=== PATIENT | male | born 1935 | race Caucasian/White ===

== ENCOUNTER → 2020-06-24 | Day surgery (SDC) | payer MEDICARE ==
[2020-06-22 10:43] LABS: BASOPHILS % 0.6 % (0.0-1.0); EOSINOPHILS # (AUTO) 0.1 (0.0-0.4); EOSINOPHILS % 1.6 % (0.0-6.0); HEMATOCRIT 37.1 % (38.2-49.6); HEMOGLOBIN 12.2 g/dL (14.0-18.0); LYMPHOCYTES % 15.6 % (18.0-39.1); MEAN CORPUSCULAR HGB CONC 32.9 g/dL (31-35); MEAN CORPUSCULAR VOLUME 91.2 fL (81-99); MONOCYTES # (AUTO) 0.5 (0.2-0.8); MONOCYTES % 7.4 % (4.4-11.3); NEUTROPHILS # (AUTO) 4.7 (2.1-6.9); NEUTROPHILS % 74.5 % (38.7-80.0); PLATELET COUNT 197 x10e3/uL (140-360); RED BLOOD COUNT 4.07 x10e6/uL (4.3-5.7); RED CELL DISTRIBUTION WIDTH 13.5 % (11.7-14.4)
[2020-06-22 11:00] LABS: ANION GAP 13.8 mmol/L (8-16); CALCIUM 10.1 mg/dL (8.4-10.2); CREATININE, SERUM 1.27 mg/dL (0.72-1.25); POTASSIUM 3.8 mmol/L (3.5-5.1)
[~2020-06-24] MED LIST: BUPIVACAINE 0.5%/EPI 30 ML SDV INJ ONE; DEXAMETHASONE SOD PHOS INJ 4 MG/ML VIAL ONE; FENTANYL CITRATE/PF 100MCG/2 ML INJ ONE; GLYCOPYRROLATE INJ 0.2 MG/ML VIAL ONE; HYDROCODONE/APAP 7.5MG-325MG 1 EA TAB ONE; LIDOCAINE HCL 2% LOCAL INJ 5 ML SDV VIAL INJ ONE; NEOSTIGMINE 1 MG/ML 10ML VIAL ONE; ONDANSETRON HCL INJ 2MG/ML 2ML 2 MG/ML VIAL ONE; PHENYLEPHRINE HCL 1% 10 MG/ML VIAL ONE; PROPOFOL IV EMULSION 10 MG/ML 20 ML VIAL ONE; ROCURONIUM BROMIDE 10 MG/ML 5ML VIAL IV ONE; SEVOFLURANE INHAL SOLN 250 ML PEN BTL ONE; TRILIPIX135 MG PO; Z.0.BISOPROLOL FUMAR PO; Z.0.LIPITOR40 MG PO; Z.0.PLAVIX75 MG PO; Z.1.DIOVAN HCT 1601 PO; Z.6.FISH OIL 1,0001 PO
[2020-06-24 11:15] VITALS: BP 138/61
== END | disposition home or self-care (01) ==
LOC: OR 06:22
PROVIDERS: ATTEND Surgery
DX: K42.0 Umbilical hernia with obstruction, without gangrene (principal); I45.10 Unspecified right bundle-branch block; I25.10 Atherosclerotic heart disease of native coronary artery without angina pectoris; I10 Essential (primary) hypertension; Z01.810 Encounter for preprocedural cardiovascular examination; Z01.812 Encounter for preprocedural laboratory examination; Z01.818 Encounter for other preprocedural examination; Z20.822 Contact with and (suspected) exposure to COVID-19; Z79.02 Long term (current) use of antithrombotics/antiplatelets
CPT/HCPCS: 36415; 49587; 71046; 80048; 85025; 93005; C1781; J1100; J2001; J2370; J2405; J2704; J2710; J3010; U0002

== ENCOUNTER 2022-07-24 16:02 | Inpatient (IN) | payer MEDICARE ==
[~2022-07-24] VITALS: Ht 185.4 cm; Wt 83.9 kg
[~2022-07-24 16:02] MED LIST changes: -BUPIVACAINE 0.5%/EPI 30 ML SDV INJ ONE; +DEXAMETHASONE SOD PHOS INJ 4 MG/ML SDV ONE; -DEXAMETHASONE SOD PHOS INJ 4 MG/ML VIAL ONE; -FENTANYL CITRATE/PF 100MCG/2 ML INJ ONE; -HYDROCODONE/APAP 7.5MG-325MG 1 EA TAB ONE; +LABETALOL HCL 5 MG/ML 20ML VIAL ONE; -PHENYLEPHRINE HCL 1% 10 MG/ML VIAL ONE; +POVIDONE IODINE 0.05% 0.05 % ML PO ONE; -SEVOFLURANE INHAL SOLN 250 ML PEN BTL ONE; +SUCCINYLCHOLINE CHLORIDE 20 MG/ML 10ML VIAL ONE
[2022-07-24 17:47] LABS: ALBUMIN 2.1 g/dL (3.5-5.0); ALBUMIN/GLOBULIN RATIO 0.6 (0.8-2.0); ANION GAP 12.8 mmol/L (8-16); CREATININE, SERUM 0.92 mg/dL (0.72-1.25); POTASSIUM 3.8 mmol/L (3.5-5.1)
[2022-07-24 17:48] LABS: BASOPHILS % 0.4 % (0.0-1.0); EOSINOPHILS % 0.2 % (0.0-6.0); HEMATOCRIT 25.6 % (38.2-49.6); HEMOGLOBIN 8.2 g/dL (14.0-18.0); LYMPHOCYTES # (AUTO) 1.7 (1.0-3.2); LYMPHOCYTES % 19.2 % (18.0-39.1); MEAN CORPUSCULAR HEMOGLOBIN 28.1 pg (28-32); MEAN CORPUSCULAR VOLUME 87.7 fL (81-99); MONOCYTES # (AUTO) 0.8 (0.2-0.8); MONOCYTES % 8.9 % (4.4-11.3); NEUTROPHILS # (AUTO) 6.3 (2.1-6.9); NEUTROPHILS % 70.9 % (38.7-80.0); PLATELET COUNT 367 x10e3/uL (140-360); RED BLOOD COUNT 2.92 x10e6/uL (4.3-5.7); RED CELL DISTRIBUTION WIDTH 14.6 % (11.7-14.4)
[2022-07-24 17:54] LABS: CREATINE KINASE MB 1.5 ng/mL (0-5.0)
[2022-07-24 17:56] LABS: AMORPHOUS SEDIMENT,URINE FEW (FEW); BACTERIA,URINE FEW /HPF; CLARITY,URINE HAZY (CLEAR); COLOR,URINE YELLOW (YELLOW); EPITHELIAL CELLS,URINE FEW /LPF; KETONES,URINE NEGATIVE (NEGATIVE); LEUKOCYTE ESTERASE ,URINE TRACE (NEGATIVE); NITRITE,URINE NEGATIVE (NEGATIVE); PROTEIN,URINE DIPSTICK NEGATIVE (NEGATIVE); RBC,URINE 0-5 /HPF (0-5); URINE UROBILINOGEN 1 mg/dL (0.2 - 1)
[2022-07-24] MEDS ORDERED: IOPAMIDOL 370 MG/ML 100 ML INFUS..BTL INJ ONE (19:00)
[2022-07-24] MEDS ORDERED: Morphine 4mg INJECTION 4 MG/ML INJ IV PRN (20:30)
[2022-07-24] MEDS ORDERED: ONDANSETRON HCL INJ 2MG/ML 2ML 2 MG/ML VIAL IV PRN (20:30)
[2022-07-24] MEDS: SODIUM CHLORIDE 0.9% 1000ML 1,000 ML IV SCH (21:14)
[2022-07-24 22:42] LABS: FERRITIN 777.7 ng/mL (21.81-274.66)
[2022-07-25] MEDS: SODIUM CHLORIDE 0.9% 1000ML 1,000 ML IV SCH ×4 (03:18→23:52)
[2022-07-25 03:30] LABS: CREATINE KINASE MB 1.6 ng/mL (0-5.0)
[2022-07-25 04:55] LABS: BASOPHILS # (AUTO) 0.1 (0.0-0.1); BASOPHILS % 0.8 % (0.0-1.0); HEMATOCRIT 24.4 % (38.2-49.6); HEMOGLOBIN 7.8 g/dL (14.0-18.0); LYMPHOCYTES # (AUTO) 1.2 (1.0-3.2); LYMPHOCYTES % 15.7 % (18.0-39.1); MEAN CORPUSCULAR HEMOGLOBIN 28.1 pg (28-32); MEAN CORPUSCULAR VOLUME 87.8 fL (81-99); MONOCYTES # (AUTO) 0.7 (0.2-0.8); NEUTROPHILS # (AUTO) 5.9 (2.1-6.9); NEUTROPHILS % 73.9 % (38.7-80.0); PLATELET COUNT 329 x10e3/uL (140-360); RED BLOOD COUNT 2.78 x10e6/uL (4.3-5.7); RED CELL DISTRIBUTION WIDTH 14.8 % (11.7-14.4)
[2022-07-25 05:22] LABS: ALBUMIN 1.9 g/dL (3.5-5.0); ALBUMIN/GLOBULIN RATIO 0.7 (0.8-2.0); ANION GAP 12.6 mmol/L (8-16); CALCIUM 9.3 mg/dL (8.4-10.2); CREATININE, SERUM 0.84 mg/dL (0.72-1.25); POTASSIUM 3.6 mmol/L (3.5-5.1)
[2022-07-25 14:47] LABS: CREATINE KINASE MB 1.5 ng/mL (0-5.0)
[2022-07-25] MEDS ORDERED: ELIQUIS5 MG PO (23:39)
[2022-07-25] MEDS ORDERED: TRICOR145 MG PO (23:39)
[2022-07-25] MEDS ORDERED: CARVEDILOL3.125 MG PO (23:39)
[2022-07-25] MEDS ORDERED: NORVASC10 MG PO (23:39)
[2022-07-25] MEDS ORDERED: ATROVENT HFA12.9 GM INH (23:39)
[2022-07-25] MEDS ORDERED: VITAMIN B-121000 MC2 PO (23:39)
[2022-07-25] MEDS ORDERED: PREDNISONE20 MG PO (23:39)
[2022-07-25] MEDS ORDERED: BROVANA15 MCG/2 M NEB (23:39)
[2022-07-25] MEDS ORDERED: PROTONIX20 MG PO (23:39)
[2022-07-25] MEDS ORDERED: FUROSEMIDE40 MG PO (23:39)
[2022-07-25] MEDS ORDERED: BUDESONIDE0.5 MG/2 M NEB (23:39)
[2022-07-25] MEDS ORDERED: OMEGA-31000 MG PO (23:39)
[2022-07-26] VITALS (7 sets, daily range): BP systolic 113–145; BP diastolic 61–85
[2022-07-26] MEDS: SODIUM CHLORIDE 0.9% 1000ML 1,000 ML IV SCH ×3 (04:51→20:27)
[2022-07-26 05:41] LABS: BASOPHILS # (AUTO) 0.1 (0.0-0.1); BASOPHILS % 0.9 % (0.0-1.0); HEMATOCRIT 23.4 % (38.2-49.6); HEMOGLOBIN 7.8 g/dL (14.0-18.0); LYMPHOCYTES # (AUTO) 1.3 (1.0-3.2); LYMPHOCYTES % 23.2 % (18.0-39.1); MEAN CORPUSCULAR HEMOGLOBIN 29.9 pg (28-32); MEAN CORPUSCULAR HGB CONC 33.3 g/dL (31-35); MEAN CORPUSCULAR VOLUME 89.7 fL (81-99); MONOCYTES # (AUTO) 0.5 (0.2-0.8); MONOCYTES % 8.9 % (4.4-11.3); NEUTROPHILS # (AUTO) 3.8 (2.1-6.9); NEUTROPHILS % 66.5 % (38.7-80.0); PLATELET COUNT 306 x10e3/uL (140-360); RED BLOOD COUNT 2.61 x10e6/uL (4.3-5.7); RED CELL DISTRIBUTION WIDTH 15.6 % (11.7-14.4)
[2022-07-26 06:05] LABS: ALBUMIN 2.1 g/dL (3.5-5.0); ALBUMIN/GLOBULIN RATIO 0.7 (0.8-2.0); ANION GAP 11.5 mmol/L (8-16); CALCIUM 9.4 mg/dL (8.4-10.2); CREATININE, SERUM 0.89 mg/dL (0.72-1.25); POTASSIUM 3.5 mmol/L (3.5-5.1)
[2022-07-26] MEDS: IRON SUCROSE 100 MG in SODIUM CHLORIDE 0.9% 100 ML IV SCH (09:24)
[2022-07-26] MEDS: OMEGA 3 POLYUNSAT FATTY ACIDS 1000 MG SOFTGEL PO SCH ×2 (09:24→18:03)
[2022-07-26] MEDS: VALSARTAN 160 MG TAB PO SCH (09:25)
[2022-07-26] MEDS: HYDROCHLOROTHIAZIDE 25 MG TAB PO SCH (09:25)
[2022-07-26] MEDS: BISOPROLOL FUMARATE 10 MG TAB PO SCH (09:26)
[2022-07-26] MEDS: ATORVASTATIN 40 MG TAB PO SCH (09:28)
[2022-07-26] MEDS: FENOFIBRIC ACID 135 MG PO SCH (11:19)
[2022-07-26] MEDS ORDERED: GADOBENATE DIMEGLUMINE 1 ML IV ONE (12:36)
[2022-07-27] VITALS (8 sets, daily range): BP systolic 111–132; BP diastolic 56–90
[2022-07-27] MEDS: SODIUM CHLORIDE 0.9% 1000ML 1,000 ML IV SCH ×4 (02:54→20:21)
[2022-07-27 07:22] LABS: BASOPHILS # (AUTO) 0.1 (0.0-0.1); BASOPHILS % 0.8 % (0.0-1.0); EOSINOPHILS % 0.3 % (0.0-6.0); HEMATOCRIT 23.4 % (38.2-49.6); HEMOGLOBIN 7.4 g/dL (14.0-18.0); LYMPHOCYTES # (AUTO) 1.4 (1.0-3.2); LYMPHOCYTES % 21.9 % (18.0-39.1); MEAN CORPUSCULAR HGB CONC 31.6 g/dL (31-35); MEAN CORPUSCULAR VOLUME 88.6 fL (81-99); MONOCYTES # (AUTO) 0.6 (0.2-0.8); NEUTROPHILS # (AUTO) 4.2 (2.1-6.9); NEUTROPHILS % 67.5 % (38.7-80.0); PLATELET COUNT 266 x10e3/uL (140-360); RED BLOOD COUNT 2.64 x10e6/uL (4.3-5.7); RED CELL DISTRIBUTION WIDTH 15.5 % (11.7-14.4)
[2022-07-27 07:43] LABS: ALBUMIN 1.9 g/dL (3.5-5.0); ALBUMIN/GLOBULIN RATIO 0.7 (0.8-2.0); ANION GAP 10.3 mmol/L (8-16); CALCIUM 8.7 mg/dL (8.4-10.2); CREATININE, SERUM 0.79 mg/dL (0.72-1.25); POTASSIUM 3.3 mmol/L (3.5-5.1)
[2022-07-27] MEDS: IRON SUCROSE 100 MG in SODIUM CHLORIDE 0.9% 100 ML IV SCH (08:41)
[2022-07-27] MEDS: OMEGA 3 POLYUNSAT FATTY ACIDS 1000 MG SOFTGEL PO SCH ×2 (08:41→18:33)
[2022-07-27] MEDS: BISOPROLOL FUMARATE 10 MG TAB PO SCH (08:42)
[2022-07-27] MEDS: FENOFIBRIC ACID 135 MG PO SCH (08:42)
[2022-07-27] MEDS: VALSARTAN 160 MG TAB PO SCH (08:42)
[2022-07-27] MEDS: HYDROCHLOROTHIAZIDE 25 MG TAB PO SCH (08:42)
[2022-07-27] MEDS: ATORVASTATIN 40 MG TAB PO SCH (08:42)
[2022-07-28] VITALS (9 sets, daily range): BP systolic 120–134; BP diastolic 61–71
[2022-07-28 05:50] LABS: BASOPHILS # (AUTO) 0.1 (0.0-0.1); BASOPHILS % 0.8 % (0.0-1.0); HEMATOCRIT 22.9 % (38.2-49.6); HEMOGLOBIN 7.2 g/dL (14.0-18.0); LYMPHOCYTES # (AUTO) 1.6 (1.0-3.2); LYMPHOCYTES % 23.5 % (18.0-39.1); MEAN CORPUSCULAR HEMOGLOBIN 27.9 pg (28-32); MEAN CORPUSCULAR HGB CONC 31.4 g/dL (31-35); MEAN CORPUSCULAR VOLUME 88.8 fL (81-99); MONOCYTES # (AUTO) 0.5 (0.2-0.8); MONOCYTES % 8.2 % (4.4-11.3); NEUTROPHILS # (AUTO) 4.4 (2.1-6.9); NEUTROPHILS % 66.9 % (38.7-80.0); PLATELET COUNT 277 x10e3/uL (140-360); RED BLOOD COUNT 2.58 x10e6/uL (4.3-5.7); RED CELL DISTRIBUTION WIDTH 15.5 % (11.7-14.4)
[2022-07-28] MEDS: SODIUM CHLORIDE 0.9% 1000ML 1,000 ML IV SCH ×3 (05:59→16:25)
[2022-07-28 06:29] LABS: ALBUMIN 1.9 g/dL (3.5-5.0); ALBUMIN/GLOBULIN RATIO 0.7 (0.8-2.0); CALCIUM 8.8 mg/dL (8.4-10.2); CREATININE, SERUM 0.76 mg/dL (0.72-1.25)
[2022-07-28] MEDS ORDERED: ONDANSETRON HCL 4 MG ORAL DISINTEGRATING TAB PO PRN (08:30)
[2022-07-28] MEDS: FENOFIBRIC ACID 135 MG PO SCH (09:00)
[2022-07-28] MEDS: VALSARTAN 160 MG TAB PO SCH (09:01)
[2022-07-28] MEDS: OMEGA 3 POLYUNSAT FATTY ACIDS 1000 MG SOFTGEL PO SCH ×2 (09:01→16:20)
[2022-07-28] MEDS: IRON SUCROSE 100 MG in SODIUM CHLORIDE 0.9% 100 ML IV SCH (09:01)
[2022-07-28] MEDS: HYDROCHLOROTHIAZIDE 25 MG TAB PO SCH (09:02)
[2022-07-28] MEDS: BISOPROLOL FUMARATE 10 MG TAB PO SCH (09:03)
[2022-07-28] MEDS: ATORVASTATIN 40 MG TAB PO SCH (09:09)
[2022-07-28] MEDS ORDERED: ENOXAPARIN SOD INJ 40 MG/0.4 ML SYR SC ONE (16:27)
[2022-07-28] MEDS: ENOXAPARIN SOD INJ 40 MG/0.4 ML SYR SC SCH (21:23)
[2022-07-29] VITALS (8 sets, daily range): BP systolic 124–146; BP diastolic 60–74
[2022-07-29] MEDS: SODIUM CHLORIDE 0.9% 1000ML 1,000 ML IV SCH ×5 (01:07→21:41)
[2022-07-29 06:57] LABS: BASOPHILS # (AUTO) 0.1 (0.0-0.1); HEMOGLOBIN 7.2 g/dL (14.0-18.0); LYMPHOCYTES # (AUTO) 1.3 (1.0-3.2); LYMPHOCYTES % 21.8 % (18.0-39.1); MEAN CORPUSCULAR HEMOGLOBIN 29.8 pg (28-32); MEAN CORPUSCULAR HGB CONC 32.7 g/dL (31-35); MEAN CORPUSCULAR VOLUME 90.9 fL (81-99); MONOCYTES # (AUTO) 0.5 (0.2-0.8); NEUTROPHILS % 67.7 % (38.7-80.0); PLATELET COUNT 267 x10e3/uL (140-360); RED BLOOD COUNT 2.42 x10e6/uL (4.3-5.7); RED CELL DISTRIBUTION WIDTH 16.4 % (11.7-14.4)
[2022-07-29 07:09] LABS: ANION GAP 11.9 mmol/L (8-16); CALCIUM 8.2 mg/dL (8.4-10.2); CREATININE, SERUM 0.7 mg/dL (0.72-1.25)
[2022-07-29 07:12] LABS: POTASSIUM 2.9 mmol/L (3.5-5.1)
[2022-07-29] MEDS: BISOPROLOL FUMARATE 10 MG TAB PO SCH (09:19)
[2022-07-29] MEDS: ENOXAPARIN SOD INJ 40 MG/0.4 ML SYR SC SCH ×2 (09:19→20:16)
[2022-07-29] MEDS: HYDROCHLOROTHIAZIDE 25 MG TAB PO SCH (09:19)
[2022-07-29] MEDS: OMEGA 3 POLYUNSAT FATTY ACIDS 1000 MG SOFTGEL PO SCH ×2 (09:19→16:54)
[2022-07-29] MEDS: VALSARTAN 160 MG TAB PO SCH (09:19)
[2022-07-29] MEDS: FENOFIBRIC ACID 135 MG PO SCH (09:19)
[2022-07-29] MEDS: IRON SUCROSE 100 MG in SODIUM CHLORIDE 0.9% 100 ML IV SCH (09:20)
[2022-07-29] MEDS ORDERED: FUROSEMIDE INJ 10 MG/ML 2 ML VIAL IV PRN (18:15)
[2022-07-29] MEDS ORDERED: SODIUM CHLORIDE 0.9% 250ML 250 ML IV ONE (18:35)
[2022-07-29] MEDS: POTASSIUM CHLORIDE 20MEQ/100ML 100 ML IV SCH ×2 (20:15→21:38)
[2022-07-29] MEDS: ATORVASTATIN 40 MG TAB PO SCH (21:38)
[2022-07-30] VITALS (8 sets, daily range): BP systolic 129–166; BP diastolic 67–75
[2022-07-30] MEDS: SODIUM CHLORIDE 0.9% 1000ML 1,000 ML IV SCH ×3 (05:46→17:32)
[2022-07-30] MEDS ORDERED: FUROSEMIDE INJ 10 MG/ML 2 ML VIAL IV PRN (06:15)
[2022-07-30 08:26] LABS: BASOPHILS # (AUTO) 0.1 (0.0-0.1); BASOPHILS % 0.9 % (0.0-1.0); EOSINOPHILS % 0.1 % (0.0-6.0); HEMATOCRIT 32.4 % (38.2-49.6); HEMOGLOBIN 10.6 g/dL (14.0-18.0); LYMPHOCYTES # (AUTO) 1.5 (1.0-3.2); LYMPHOCYTES % 19.6 % (18.0-39.1); MEAN CORPUSCULAR HGB CONC 32.7 g/dL (31-35); MEAN CORPUSCULAR VOLUME 88.5 fL (81-99); MONOCYTES # (AUTO) 0.6 (0.2-0.8); MONOCYTES % 7.6 % (4.4-11.3); NEUTROPHILS # (AUTO) 5.5 (2.1-6.9); NEUTROPHILS % 71.4 % (38.7-80.0); PLATELET COUNT 286 x10e3/uL (140-360); RED BLOOD COUNT 3.66 x10e6/uL (4.3-5.7); RED CELL DISTRIBUTION WIDTH 15.9 % (11.7-14.4)
[2022-07-30 08:51] LABS: ALBUMIN 2.1 g/dL (3.5-5.0); ALBUMIN/GLOBULIN RATIO 0.7 (0.8-2.0); ANION GAP 12.2 mmol/L (8-16); CALCIUM 8.8 mg/dL (8.4-10.2); CREATININE, SERUM 0.73 mg/dL (0.72-1.25); POTASSIUM 3.2 mmol/L (3.5-5.1)
[2022-07-30] MEDS: ATORVASTATIN 40 MG TAB PO SCH (09:00)
[2022-07-30] MEDS: OMEGA 3 POLYUNSAT FATTY ACIDS 1000 MG SOFTGEL PO SCH ×2 (09:13→16:52)
[2022-07-30] MEDS: ENOXAPARIN SOD INJ 40 MG/0.4 ML SYR SC SCH ×2 (09:13→21:18)
[2022-07-30] MEDS: BISOPROLOL FUMARATE 10 MG TAB PO SCH (09:14)
[2022-07-30] MEDS: VALSARTAN 160 MG TAB PO SCH (09:16)
[2022-07-30] MEDS: FENOFIBRIC ACID 135 MG PO SCH (09:17)
[2022-07-30] MEDS: IRON SUCROSE 100 MG in SODIUM CHLORIDE 0.9% 100 ML IV SCH (09:17)
[2022-07-30] MEDS: HYDROCHLOROTHIAZIDE 25 MG TAB PO SCH (09:17)
[2022-07-31] VITALS (9 sets, daily range): BP systolic 140–164; BP diastolic 67–88
[2022-07-31] MEDS: SODIUM CHLORIDE 0.9% 1000ML 1,000 ML IV SCH ×4 (03:40→23:49)
[2022-07-31 07:56] LABS: BASOPHILS # (AUTO) 0.1 (0.0-0.1); HEMATOCRIT 26.2 % (38.2-49.6); HEMOGLOBIN 8.9 g/dL (14.0-18.0); LYMPHOCYTES # (AUTO) 1.3 (1.0-3.2); LYMPHOCYTES % 22.1 % (18.0-39.1); MEAN CORPUSCULAR HEMOGLOBIN 30.9 pg (28-32); MONOCYTES # (AUTO) 0.5 (0.2-0.8); NEUTROPHILS % 68.4 % (38.7-80.0); PLATELET COUNT 198 x10e3/uL (140-360); RED BLOOD COUNT 2.88 x10e6/uL (4.3-5.7); RED CELL DISTRIBUTION WIDTH 17.7 % (11.7-14.4)
[2022-07-31 08:32] LABS: ALBUMIN 1.7 g/dL (3.5-5.0); ALBUMIN/GLOBULIN RATIO 0.7 (0.8-2.0); ANION GAP 10.7 mmol/L (8-16); CALCIUM 7.8 mg/dL (8.4-10.2); CREATININE, SERUM 0.66 mg/dL (0.72-1.25)
[2022-07-31 08:55] LABS: POTASSIUM 2.7 mmol/L (3.5-5.1)
[2022-07-31] MEDS: ATORVASTATIN 40 MG TAB PO SCH (10:22)
[2022-07-31] MEDS: BISOPROLOL FUMARATE 10 MG TAB PO SCH (10:23)
[2022-07-31] MEDS: HYDROCHLOROTHIAZIDE 25 MG TAB PO SCH (10:31)
[2022-07-31] MEDS: VALSARTAN 160 MG TAB PO SCH (10:31)
[2022-07-31] MEDS: OMEGA 3 POLYUNSAT FATTY ACIDS 1000 MG SOFTGEL PO SCH ×2 (10:32→17:51)
[2022-07-31] MEDS: ENOXAPARIN SOD INJ 40 MG/0.4 ML SYR SC SCH (10:32)
[2022-07-31] MEDS: FENOFIBRIC ACID 135 MG PO SCH (10:32)
[2022-07-31] MEDS ORDERED: POTASSIUM CHLORIDE 20 MEQ TAB CR PO ONE ×3 (12:45→20:30)
[2022-08-01] VITALS (8 sets, daily range): BP systolic 131–155; BP diastolic 65–69
[2022-08-01] MEDS: BISOPROLOL FUMARATE 10 MG TAB PO SCH (09:00)
[2022-08-01] MEDS: OMEGA 3 POLYUNSAT FATTY ACIDS 1000 MG SOFTGEL PO SCH ×2 (09:00→17:05)
[2022-08-01] MEDS: VALSARTAN 160 MG TAB PO SCH (09:00)
[2022-08-01] MEDS: HYDROCHLOROTHIAZIDE 25 MG TAB PO SCH (09:00)
[2022-08-01] MEDS: ATORVASTATIN 40 MG TAB PO SCH (09:00)
[2022-08-01] MEDS: FENOFIBRIC ACID 135 MG PO SCH (09:00)
[2022-08-01] MEDS ORDERED: FENTANYL CITRATE/PF 100MCG/2 ML INJ ONE (12:16)
[2022-08-01] MEDS ORDERED: BUPIVACAINE 0.25% 30ML SDV ONE ×2 (13:06→13:11)
[2022-08-01 13:43] LABS: BASOPHILS # (AUTO) 0.1 (0.0-0.1); BASOPHILS % 0.7 % (0.0-1.0); EOSINOPHILS % 0.1 % (0.0-6.0); HEMATOCRIT 29.5 % (38.2-49.6); LYMPHOCYTES # (AUTO) 1.7 (1.0-3.2); LYMPHOCYTES % 24.3 % (18.0-39.1); MEAN CORPUSCULAR HEMOGLOBIN 29.2 pg (28-32); MEAN CORPUSCULAR HGB CONC 33.9 g/dL (31-35); MONOCYTES # (AUTO) 0.5 (0.2-0.8); MONOCYTES % 7.1 % (4.4-11.3); NEUTROPHILS # (AUTO) 4.8 (2.1-6.9); NEUTROPHILS % 67.5 % (38.7-80.0); PLATELET COUNT 237 x10e3/uL (140-360); RED BLOOD COUNT 3.43 x10e6/uL (4.3-5.7); RED CELL DISTRIBUTION WIDTH 16.9 % (11.7-14.4)
[2022-08-01 13:56] LABS: ANION GAP 12.5 mmol/L (8-16); CALCIUM 8.3 mg/dL (8.4-10.2); CREATININE, SERUM 0.63 mg/dL (0.72-1.25); POTASSIUM 3.5 mmol/L (3.5-5.1)
[2022-08-01] MEDS ORDERED: ACETAMINOPHEN 1000 MG/100 ML 100 ML IV ONE (14:14)
[2022-08-01] MEDS ORDERED: HYDROMORPHONE 1MG/1ML INJ IV PRN (15:00)
[2022-08-01] MEDS ORDERED: ACETAMINOPHEN 1000 MG/100 ML IV PRN (15:00)
[2022-08-01] MEDS ORDERED: HYDROCODONE/APAP 7.5MG-325MG 1 EA TAB PO PRN (15:00)
[2022-08-01] MEDS: SODIUM CHLORIDE 0.9% 1000ML 1,000 ML IV SCH (17:09)
[2022-08-02] VITALS (8 sets, daily range): BP systolic 115–142; BP diastolic 57–70
[2022-08-02] MEDS: SODIUM CHLORIDE 0.9% 1000ML 1,000 ML IV SCH ×3 (00:20→20:55)
[2022-08-02 06:01] LABS: BASOPHILS # (AUTO) 0.1 (0.0-0.1); BASOPHILS % 0.8 % (0.0-1.0); EOSINOPHILS % 0.2 % (0.0-6.0); HEMATOCRIT 28.5 % (38.2-49.6); HEMOGLOBIN 9.6 g/dL (14.0-18.0); LYMPHOCYTES # (AUTO) 1.6 (1.0-3.2); LYMPHOCYTES % 26.2 % (18.0-39.1); MEAN CORPUSCULAR HEMOGLOBIN 30.9 pg (28-32); MEAN CORPUSCULAR HGB CONC 33.7 g/dL (31-35); MEAN CORPUSCULAR VOLUME 91.6 fL (81-99); MONOCYTES # (AUTO) 0.5 (0.2-0.8); MONOCYTES % 7.2 % (4.4-11.3); NEUTROPHILS # (AUTO) 4.1 (2.1-6.9); PLATELET COUNT 219 x10e3/uL (140-360); RED BLOOD COUNT 3.11 x10e6/uL (4.3-5.7); RED CELL DISTRIBUTION WIDTH 17.8 % (11.7-14.4)
[2022-08-02 06:28] LABS: ALBUMIN 1.8 g/dL (3.5-5.0); ALBUMIN/GLOBULIN RATIO 0.8 (0.8-2.0); ANION GAP 9.5 mmol/L (8-16); CALCIUM 8.4 mg/dL (8.4-10.2); CREATININE, SERUM 0.68 mg/dL (0.72-1.25); POTASSIUM 3.5 mmol/L (3.5-5.1)
[2022-08-02] MEDS: VALSARTAN 160 MG TAB PO SCH (09:05)
[2022-08-02] MEDS: BISOPROLOL FUMARATE 10 MG TAB PO SCH (09:05)
[2022-08-02] MEDS: ATORVASTATIN 40 MG TAB PO SCH (09:05)
[2022-08-02] MEDS: FENOFIBRIC ACID 135 MG PO SCH (09:06)
[2022-08-02] MEDS: OMEGA 3 POLYUNSAT FATTY ACIDS 1000 MG SOFTGEL PO SCH ×2 (09:06→17:09)
[2022-08-02] MEDS: HYDROCHLOROTHIAZIDE 25 MG TAB PO SCH (09:06)
[2022-08-03] VITALS: BP 132/69
[2022-08-03 04:00] VITALS: BP 128/68
[2022-08-03 08:04] VITALS: BP 149/72
[2022-08-03 08:29] VITALS: BP 140/70
[2022-08-03] MEDS: OMEGA 3 POLYUNSAT FATTY ACIDS 1000 MG SOFTGEL PO SCH ×2 (11:40→17:05)
[2022-08-03] MEDS: BISOPROLOL FUMARATE 10 MG TAB PO SCH (11:40)
[2022-08-03] MEDS: ATORVASTATIN 40 MG TAB PO SCH (11:41)
[2022-08-03] MEDS: VALSARTAN 160 MG TAB PO SCH (11:41)
[2022-08-03] MEDS: HYDROCHLOROTHIAZIDE 25 MG TAB PO SCH (11:41)
[2022-08-03] MEDS: FENOFIBRIC ACID 135 MG PO SCH (11:42)
[2022-08-03 13:47] VITALS: BP 146/73
[2022-08-03 16:24] VITALS: BP 135/63
== END 2022-08-03 18:15 | disposition home or self-care (01) | DRG 417 ==
LOC: ER 17:06 → ERHOLD 20:30 → MED/SURG2 07-25 22:16 → MED/SURG3 07-25 22:33 → MED/SURG2 07-25 22:43
PROVIDERS: ADMIT Family Medicine; ATTEND Family Medicine
PROC: 30233N1 Transfusion of Nonautologous Red Blood Cells into Peripheral Vein, Percutaneous Approach (ICD-10-PCS; 2022-07-29)
PROC: 0FT44ZZ Resection of Gallbladder, Percutaneous Endoscopic Approach (ICD-10-PCS; principal; 2022-08-01 13:39)
DX: K86.3 Pseudocyst of pancreas (principal); K85.10 Biliary acute pancreatitis without necrosis or infection; K80.10 Calculus of gallbladder with chronic cholecystitis without obstruction; I25.10 Atherosclerotic heart disease of native coronary artery without angina pectoris; I10 Essential (primary) hypertension; E78.5 Hyperlipidemia, unspecified; Z95.5 Presence of coronary angioplasty implant and graft; J44.9 Chronic obstructive pulmonary disease, unspecified; Z20.822 Contact with and (suspected) exposure to COVID-19; E78.00 Pure hypercholesterolemia, unspecified; D64.9 Anemia, unspecified; Z86.718 Personal history of other venous thrombosis and embolism; Z79.01 Long term (current) use of anticoagulants; E11.69 Type 2 diabetes mellitus with other specified complication
CPT/HCPCS: 36415; 74177; 74183; 76705; 80048; 80053; 81001; 82150; 82550; 82553; 82607; 82728; 82746; 82948; 83540; 83690; 84466; 84484; 85025; 86850; 86900; 86920; 87040; 88304; 93005; 93931; 93970; 93971; 94799; 96360; 96361; 99252; 99284; C1766; J0330; J1100; J1650; J1756; J1940; J2001; J2270; J2405; J2543; J2710; J3480; J7030; J7050; P9016; Q9967

== ENCOUNTER → 2022-09-02 | Outpatient (CLI) | payer MEDICARE ==
[~2022-09-02] MED LIST changes: +ATROVENT HFA12.9 GM INH; +BROVANA15 MCG/2 M NEB; +BUDESONIDE0.5 MG/2 M NEB; +CARVEDILOL3.125 MG PO; -DEXAMETHASONE SOD PHOS INJ 4 MG/ML SDV ONE; +DIATRIZOATE MEGL/DIATRIZOA SOD 30 ML BTL PO ONE; +ELIQUIS5 MG PO; +FUROSEMIDE40 MG PO; -GLYCOPYRROLATE INJ 0.2 MG/ML VIAL ONE; +IOPAMIDOL 370 MG/ML 100 ML INFUS..BTL INJ ONE; -LABETALOL HCL 5 MG/ML 20ML VIAL ONE; -LIDOCAINE HCL 2% LOCAL INJ 5 ML SDV VIAL INJ ONE; -NEOSTIGMINE 1 MG/ML 10ML VIAL ONE; +NORVASC10 MG PO; +OMEGA-31000 MG PO; -ONDANSETRON HCL INJ 2MG/ML 2ML 2 MG/ML VIAL ONE; -POVIDONE IODINE 0.05% 0.05 % ML PO ONE; +PREDNISONE20 MG PO; -PROPOFOL IV EMULSION 10 MG/ML 20 ML VIAL ONE; +PROTONIX20 MG PO; -ROCURONIUM BROMIDE 10 MG/ML 5ML VIAL IV ONE; -SUCCINYLCHOLINE CHLORIDE 20 MG/ML 10ML VIAL ONE; +TRICOR145 MG PO; +VITAMIN B-121000 MC2 PO
[2022-09-02 14:09] LABS: CREATININE, SERUM 0.92 mg/dL (0.72-1.25)
== END ==
LOC: CT 12:56
PROVIDERS: ATTEND Surgery
DX: R35.1 Nocturia (principal); R53.1 Weakness
CPT/HCPCS: 36415; 74177; 82565; 84520; Q9963; Q9967

== ENCOUNTER → 2023-04-03 | Outpatient (REF) | payer MEDICARE ==
[2023-04-03 10:13] LABS: CREATININE, SERUM 0.99 mg/dL (0.72-1.25)
== END ==
LOC: CT 08:44
PROVIDERS: ATTEND Surgery
DX: K86.3 Pseudocyst of pancreas (principal)
CPT/HCPCS: 36415; 74177; 82565; 84520; Q9963; Q9967

== ENCOUNTER 2024-07-20 19:15 | Inpatient (IN) | payer MEDICARE ==
[~2024-07-20] VITALS: Ht 185.4 cm; Wt 83.9 kg
[~2024-07-20 19:15] MED LIST changes: -DIATRIZOATE MEGL/DIATRIZOA SOD 30 ML BTL PO ONE; -IOPAMIDOL 370 MG/ML 100 ML INFUS..BTL INJ ONE
[2024-07-20 19:58] VITALS: RESP 18; TEMP 98.7
[2024-07-20 20:02] LABS: BASOPHILS % 0.1 % (0.0-1.0); HEMATOCRIT 29.5 % (38.2-49.6); HEMOGLOBIN 9.9 g/dL (14.0-18.0); LYMPHOCYTES # (AUTO) 0.4 (1.0-3.2); LYMPHOCYTES % 4.3 % (18.0-39.1); MEAN CORPUSCULAR HEMOGLOBIN 29.6 pg (28-32); MEAN CORPUSCULAR HGB CONC 33.6 g/dL (31-35); MEAN CORPUSCULAR VOLUME 88.3 fL (81-99); MONOCYTES # (AUTO) 1.2 (0.2-0.8); MONOCYTES % 12.5 % (4.4-11.3); NEUTROPHILS # (AUTO) 7.8 (2.1-6.9); NEUTROPHILS % 82.5 % (38.7-80.0); PLATELET COUNT 165 x10e3/uL (140-360); RED BLOOD COUNT 3.34 x10e6/uL (4.3-5.7); RED CELL DISTRIBUTION WIDTH 13.7 % (11.7-14.4); WHITE BLOOD COUNT 9.43 x10e3/uL (4.8-10.8)
[2024-07-20] MEDS: Morphine 4mg INJECTION 4 MG/ML INJ IV ONE (20:02)
[2024-07-20] MEDS: SODIUM CHLORIDE 0.9% 1000ML 1,000 ML IV ONE (20:02)
[2024-07-20] MEDS: ONDANSETRON HCL INJ 2MG/ML 2ML 2 MG/ML VIAL IV STA (20:02)
[2024-07-20 20:25] LABS: ANION GAP 14.8 mmol/L (8-16); BILIRUBIN,TOTAL 0.7 mg/dL (0.2-1.2); CALCIUM 9.6 mg/dL (8.4-10.2); CREATININE, SERUM 1.7 mg/dL (0.72-1.25); POTASSIUM 3.8 mmol/L (3.5-5.1)
[2024-07-20 22:55] LABS: CLARITY,URINE CLOUDY (CLEAR); COLOR,URINE YELLOW (YELLOW)
[2024-07-20 22:56] LABS: BILIRUBIN,URINE NEGATIVE (NEGATIVE); GLUCOSE, URINE NEGATIVE (NEGATIVE); KETONES,URINE NEGATIVE (NEGATIVE); LEUKOCYTE ESTERASE ,URINE LARGE (NEGATIVE); NITRITE,URINE NEGATIVE (NEGATIVE); PH,URINE 5.5 (5 - 7); PROTEIN,URINE DIPSTICK 1+ (NEGATIVE); URINE UROBILINOGEN 0.2 mg/dL (0.2 - 1)
[2024-07-20 23:11] LABS: BACTERIA,URINE MANY /HPF; EPITHELIAL CELLS,URINE FEW /LPF; WBC,URINE (MAN) >50 /HPF (0-5)
[2024-07-20 23:30] VITALS: PULSE 81
[2024-07-20] MEDS ORDERED: Morphine 4mg INJECTION 4 MG/ML INJ IV PRN (23:45)
[2024-07-20] MEDS ORDERED: ONDANSETRON HCL INJ 2MG/ML 2ML 2 MG/ML VIAL IV PRN (23:45)
[2024-07-21] VITALS (10 sets, daily range): BP systolic 118–149; BP diastolic 52–74; PULSE 60–93; RESP 18–20; TEMP 97.6–101.3; O2SAT 96–100
[2024-07-21] MEDS: SODIUM CHLORIDE 0.9% 1000ML 1,000 ML IV SCH (00:05)
[2024-07-21] MEDS: ACETAMINOPHEN 325 MG TAB PO PRN (06:34)
[2024-07-21 06:41] LABS: BASOPHILS % 0.3 % (0.0-1.0); HEMATOCRIT 29.6 % (38.2-49.6); HEMOGLOBIN 9.8 g/dL (14.0-18.0); LYMPHOCYTES # (AUTO) 0.6 (1.0-3.2); LYMPHOCYTES % 7.5 % (18.0-39.1); MEAN CORPUSCULAR HEMOGLOBIN 30.2 pg (28-32); MEAN CORPUSCULAR HGB CONC 33.1 g/dL (31-35); MEAN CORPUSCULAR VOLUME 91.1 fL (81-99); MONOCYTES # (AUTO) 0.9 (0.2-0.8); MONOCYTES % 11.5 % (4.4-11.3); NEUTROPHILS # (AUTO) 6.2 (2.1-6.9); NEUTROPHILS % 80.2 % (38.7-80.0); PLATELET COUNT 141 x10e3/uL (140-360); RED BLOOD COUNT 3.25 x10e6/uL (4.3-5.7); RED CELL DISTRIBUTION WIDTH 13.7 % (11.7-14.4); WHITE BLOOD COUNT 7.76 x10e3/uL (4.8-10.8)
[2024-07-21 07:17] LABS: ALBUMIN 2.7 g/dL (3.5-5.0); ANION GAP 13.4 mmol/L (8-16); BILIRUBIN,TOTAL 0.5 mg/dL (0.2-1.2); CALCIUM 8.8 mg/dL (8.4-10.2); CREATININE, SERUM 1.38 mg/dL (0.72-1.25); TOTAL PROTEIN 5.3 g/dL (6.5-8.1)
[2024-07-21 07:28] LABS: POTASSIUM 3.4 mmol/L (3.5-5.1)
[2024-07-21] MEDS ORDERED: ABILIFY5 MG PO (10:07)
[2024-07-21] MEDS ORDERED: FENOFIBRIC ACI135 MG (10:12)
[2024-07-21] MEDS ORDERED: CREON DR 12,001 EACH PO (10:15)
[2024-07-21] MEDS ORDERED: METOPROLOL TART25 MG PO (10:19)
[2024-07-21] MEDS ORDERED: VALSARTAN80 MG PO (10:19)
[2024-07-21] MEDS ORDERED: AMLODIPINE BESYL5 MG PO (10:19)
[2024-07-21] MEDS ORDERED: HYDRALAZINE HCL25 MG PO (10:20)
[2024-07-21] MEDS ORDERED: HYDRALAZINE HCL 20 MG/ML VIAL IV PRN (10:45)
[2024-07-21] MEDS ORDERED: HYDROCODONE/APAP 10MG-325MG TAB PO PRN (11:00)
[2024-07-21] MEDS ORDERED: MAGNESIUM HYDROXIDE 30 ML UDC PO PRN (11:00)
[2024-07-21] MEDS: METOPROLOL TARTRATE 25 MG TAB PO SCH (16:02)
[2024-07-21] MEDS: SENNA-S TABLET PO SCH (16:02)
[2024-07-21] MEDS: ATORVASTATIN 40 MG TAB PO SCH (20:56)
[2024-07-22] VITALS (10 sets, daily range): BP systolic 123–164; BP diastolic 56–64; PULSE 61–86; RESP 18–20; TEMP 97.6–98.2; O2SAT 96–100
[2024-07-22 06:34] LABS: BASOPHILS % 0.2 % (0.0-1.0); HEMATOCRIT 27.8 % (38.2-49.6); LYMPHOCYTES # (AUTO) 0.6 (1.0-3.2); LYMPHOCYTES % 10.6 % (18.0-39.1); MEAN CORPUSCULAR HEMOGLOBIN 29.5 pg (28-32); MEAN CORPUSCULAR HGB CONC 32.4 g/dL (31-35); MEAN CORPUSCULAR VOLUME 91.1 fL (81-99); MONOCYTES # (AUTO) 0.7 (0.2-0.8); MONOCYTES % 11.1 % (4.4-11.3); NEUTROPHILS # (AUTO) 4.7 (2.1-6.9); NEUTROPHILS % 77.8 % (38.7-80.0); PLATELET COUNT 140 x10e3/uL (140-360); RED BLOOD COUNT 3.05 x10e6/uL (4.3-5.7); WHITE BLOOD COUNT 5.97 x10e3/uL (4.8-10.8)
[2024-07-22 07:05] LABS: ANION GAP 11.5 mmol/L (8-16); CALCIUM 8.6 mg/dL (8.4-10.2); CREATININE, SERUM 1.09 mg/dL (0.72-1.25); POTASSIUM 3.5 mmol/L (3.5-5.1)
[2024-07-22] MEDS: AMYLAS/CELLU/LIPAS/PROTEA/BILE 12,000 UNIT CAP PO SCH (08:16)
[2024-07-22] MEDS: AMLODIPINE BESYLATE 5 MG TAB PO SCH (08:16)
[2024-07-22] MEDS: CYANOCOBALAMIN 1,000 MCG TAB PO SCH (08:17)
[2024-07-22] MEDS ORDERED: CYANOCOBALAMIN 1,000 MCG TAB PO SCH (09:00)
[2024-07-23 02:42] VITALS: BP 147/73; PULSE 60; RESP 19; TEMP 97.6; O2SAT 99
[2024-07-23 08:40] VITALS: BP 142/70; PULSE 55; RESP 18; TEMP 97.5; O2SAT 99
[2024-07-23] MEDS: SENNA-S TABLET PO SCH (10:03)
[2024-07-23 10:14] VITALS: BP 142/70; PULSE 55; RESP 18; TEMP 97.5; O2SAT 99
[2024-07-23 11:45] VITALS: BP 120/63; PULSE 65; RESP 18; TEMP 97.9; O2SAT 99
[2024-07-23 19:57] VITALS: BP 114/56; PULSE 61; RESP 20; TEMP 97.6; O2SAT 100
[2024-07-23 23:37] VITALS: BP 138/72; PULSE 66; RESP 19; TEMP 98.4; O2SAT 100
[2024-07-24] VITALS (9 sets, daily range): BP systolic 134–175; BP diastolic 61–74; PULSE 54–82; RESP 17–20; TEMP 97.4–98.4; O2SAT 96–100
[2024-07-24 07:14] LABS: BASOPHILS % 0.8 % (0.0-1.0); EOSINOPHILS # (AUTO) 0.1 (0.0-0.4); EOSINOPHILS % 1.7 % (0.0-6.0); HEMATOCRIT 25.5 % (38.2-49.6); HEMOGLOBIN 8.3 g/dL (14.0-18.0); LYMPHOCYTES # (AUTO) 0.6 (1.0-3.2); LYMPHOCYTES % 15.6 % (18.0-39.1); MEAN CORPUSCULAR HEMOGLOBIN 29.6 pg (28-32); MEAN CORPUSCULAR HGB CONC 32.5 g/dL (31-35); MEAN CORPUSCULAR VOLUME 91.1 fL (81-99); MONOCYTES # (AUTO) 0.3 (0.2-0.8); MONOCYTES % 8.1 % (4.4-11.3); NEUTROPHILS # (AUTO) 2.6 (2.1-6.9); NEUTROPHILS % 73.5 % (38.7-80.0); PLATELET COUNT 178 x10e3/uL (140-360); RED CELL DISTRIBUTION WIDTH 14.1 % (11.7-14.4); WHITE BLOOD COUNT 3.59 x10e3/uL (4.8-10.8)
[2024-07-24 07:40] LABS: ANION GAP 9.4 mmol/L (8-16); CALCIUM 8.3 mg/dL (8.4-10.2); CREATININE, SERUM 0.79 mg/dL (0.72-1.25)
[2024-07-24 07:45] LABS: POTASSIUM 3.4 mmol/L (3.5-5.1)
[2024-07-25] VITALS (8 sets, daily range): BP systolic 142–157; BP diastolic 61–79; PULSE 57–82; RESP 17–20; TEMP 97.4–97.9; O2SAT 95–100
[2024-07-26] VITALS (9 sets, daily range): BP systolic 134–185; BP diastolic 68–74; PULSE 58–86; RESP 18–20; TEMP 97.2–97.8; O2SAT 96–100
[2024-07-26 08:35] LABS: BASOPHILS % 0.5 % (0.0-1.0); EOSINOPHILS # (AUTO) 0.1 (0.0-0.4); EOSINOPHILS % 1.3 % (0.0-6.0); HEMATOCRIT 30.8 % (38.2-49.6); HEMOGLOBIN 9.9 g/dL (14.0-18.0); LYMPHOCYTES # (AUTO) 0.9 (1.0-3.2); LYMPHOCYTES % 15.8 % (18.0-39.1); MEAN CORPUSCULAR HEMOGLOBIN 29.4 pg (28-32); MEAN CORPUSCULAR HGB CONC 32.1 g/dL (31-35); MEAN CORPUSCULAR VOLUME 91.4 fL (81-99); MONOCYTES # (AUTO) 0.3 (0.2-0.8); MONOCYTES % 5.7 % (4.4-11.3); NEUTROPHILS # (AUTO) 4.5 (2.1-6.9); NEUTROPHILS % 76.2 % (38.7-80.0); PLATELET COUNT 270 x10e3/uL (140-360); RED BLOOD COUNT 3.37 x10e6/uL (4.3-5.7); RED CELL DISTRIBUTION WIDTH 14.3 % (11.7-14.4); WHITE BLOOD COUNT 5.96 x10e3/uL (4.8-10.8)
[2024-07-26 09:02] LABS: ANION GAP 11.4 mmol/L (8-16); CALCIUM 8.9 mg/dL (8.4-10.2); CREATININE, SERUM 0.76 mg/dL (0.72-1.25)
[2024-07-26 09:06] LABS: POTASSIUM 3.4 mmol/L (3.5-5.1)
[2024-07-26] MEDS: MUPIROCIN 2% OINT 22 GM TUBE TOP SCH (12:41)
[2024-07-26] MEDS ORDERED: PROPOFOL IV EMULSION 10 MG/ML 20 ML VIAL ONE (14:40)
[2024-07-26] MEDS ORDERED: FENTANYL CITRATE/PF 100MCG/2 ML INJ ONE (14:40)
[2024-07-26] MEDS ORDERED: LIDOCAINE HCL 2% LOCAL INJ 5 ML SDV VIAL INJ ONE (14:55)
[2024-07-26] MEDS ORDERED: ACETAMINOPHEN 1000 MG/100 ML 100 ML IV ONE (14:55)
[2024-07-26] MEDS ORDERED: SEVOFLURANE INHAL SOLN 250 ML PEN BTL ONE (14:55)
[2024-07-26] MEDS ORDERED: PHENAZOPYRIDINE HCL 100 MG TAB PO PRN (16:30)
[2024-07-27] VITALS (10 sets, daily range): BP systolic 133–169; BP diastolic 59–75; PULSE 53–81; RESP 17–20; TEMP 97.3–98.2; O2SAT 95–100
[2024-07-27 07:33] LABS: BASOPHILS % 0.3 % (0.0-1.0); EOSINOPHILS % 0.4 % (0.0-6.0); HEMATOCRIT 27.7 % (38.2-49.6); HEMOGLOBIN 9.2 g/dL (14.0-18.0); LYMPHOCYTES # (AUTO) 0.7 (1.0-3.2); MEAN CORPUSCULAR HEMOGLOBIN 29.5 pg (28-32); MEAN CORPUSCULAR HGB CONC 33.2 g/dL (31-35); MEAN CORPUSCULAR VOLUME 88.8 fL (81-99); MONOCYTES # (AUTO) 0.4 (0.2-0.8); MONOCYTES % 5.5 % (4.4-11.3); NEUTROPHILS # (AUTO) 6.5 (2.1-6.9); NEUTROPHILS % 83.9 % (38.7-80.0); PLATELET COUNT 264 x10e3/uL (140-360); RED BLOOD COUNT 3.12 x10e6/uL (4.3-5.7); RED CELL DISTRIBUTION WIDTH 14.3 % (11.7-14.4); WHITE BLOOD COUNT 7.77 x10e3/uL (4.8-10.8)
[2024-07-27 07:54] LABS: INR 1.07; PROTHROMBIN TIME 14.5 seconds (11.9-14.5)
[2024-07-27 07:55] LABS: PARTIAL THROMBOPLASTIN TIME 31.9 seconds (23.8-35.5)
[2024-07-27 08:04] LABS: ANION GAP 10.4 mmol/L (8-16); CALCIUM 8.9 mg/dL (8.4-10.2); CREATININE, SERUM 0.82 mg/dL (0.72-1.25)
[2024-07-27 08:15] LABS: POTASSIUM 3.4 mmol/L (3.5-5.1)
[2024-07-27] MEDS ORDERED: MUPIROCIN 2% OINT 22 GM TUBE TOP SCH (09:00)
[2024-07-27] MEDS ORDERED: LIDOCAINE HCL 1% 30ML-PF VIAL ONE (11:02)
[2024-07-27] MEDS ORDERED: SODIUM CHLORIDE 0.9% 250ML 250 ML ONE ×2 (11:03→14:17)
[2024-07-27] MEDS ORDERED: IOPAMIDOL 370 MG/ML 100 ML INFUS..BTL INJ ONE (11:03)
[2024-07-27] MEDS ORDERED: FENTANYL CITRATE/PF 100MCG/2 ML INJ ONE (14:17)
[2024-07-27] MEDS ORDERED: MIDAZOLAM HCL 2 MG/2 ML VIAL ONE (14:17)
[2024-07-27] MEDS ORDERED: CEFTRIAXONE 1 GM VIAL ONE (14:17)
[2024-07-27] MEDS: ACETAMINOPHEN/CODEINE 300MG - 30MG TAB PO PRN (21:04)
[2024-07-28] VITALS (10 sets, daily range): BP systolic 119–168; BP diastolic 55–90; PULSE 53–82; RESP 16–20; TEMP 97.7–98.4; O2SAT 95–100
[2024-07-29] VITALS (7 sets, daily range): BP systolic 129–165; BP diastolic 61–67; PULSE 63–68; RESP 16–18; TEMP 97.4–98.2; O2SAT 98–100
[2024-07-29 06:32] LABS: BASOPHILS % 0.4 % (0.0-1.0); EOSINOPHILS # (AUTO) 0.1 (0.0-0.4); EOSINOPHILS % 1.7 % (0.0-6.0); HEMATOCRIT 26.8 % (38.2-49.6); HEMOGLOBIN 8.6 g/dL (14.0-18.0); LYMPHOCYTES # (AUTO) 0.8 (1.0-3.2); LYMPHOCYTES % 14.3 % (18.0-39.1); MEAN CORPUSCULAR HEMOGLOBIN 29.1 pg (28-32); MEAN CORPUSCULAR HGB CONC 32.1 g/dL (31-35); MEAN CORPUSCULAR VOLUME 90.5 fL (81-99); MONOCYTES # (AUTO) 0.4 (0.2-0.8); MONOCYTES % 7.6 % (4.4-11.3); NEUTROPHILS % 75.1 % (38.7-80.0); PLATELET COUNT 250 x10e3/uL (140-360); RED BLOOD COUNT 2.96 x10e6/uL (4.3-5.7); RED CELL DISTRIBUTION WIDTH 14.6 % (11.7-14.4); WHITE BLOOD COUNT 5.37 x10e3/uL (4.8-10.8)
[2024-07-29 07:02] LABS: ANION GAP 12.2 mmol/L (8-16); CALCIUM 8.4 mg/dL (8.4-10.2); CREATININE, SERUM 0.75 mg/dL (0.72-1.25)
[2024-07-29 07:05] LABS: POTASSIUM 3.2 mmol/L (3.5-5.1)
[2024-07-30 14:12] LABS: CALCIUM 8.5 mg/dL (8.6-10.2)
== END 2024-07-29 19:30 | disposition home or self-care (01) | DRG 660 ==
LOC: ER 19:20 → ERHOLD 23:43 → MED/SURG3 07-21 00:14
PROVIDERS: ADMIT Internal Medicine; ATTEND Internal Medicine
PROC: 0T778DZ Dilation of Left Ureter with Intraluminal Device, Via Natural or Artificial Opening Endoscopic (ICD-10-PCS; 2024-07-26)
PROC: 0TF6XZZ Fragmentation in Right Ureter, External Approach (ICD-10-PCS; 2024-07-26)
PROC: BT141ZZ Fluoroscopy of Kidneys, Ureters and Bladder using Low Osmolar Contrast (ICD-10-PCS; 2024-07-26)
PROC: 0T763DZ Dilation of Right Ureter with Intraluminal Device, Percutaneous Approach (ICD-10-PCS; principal; 2024-07-27)
PROC: 0T9030Z Drainage of Right Kidney with Drainage Device, Percutaneous Approach (ICD-10-PCS; 2024-07-27)
DX: N13.6 Pyonephrosis (principal); D62 Acute posthemorrhagic anemia; D68.8 Other specified coagulation defects; N13.8 Other obstructive and reflux uropathy; N40.1 Benign prostatic hyperplasia with lower urinary tract symptoms; D69.6 Thrombocytopenia, unspecified; N17.9 Acute kidney failure, unspecified; I25.10 Atherosclerotic heart disease of native coronary artery without angina pectoris; I10 Essential (primary) hypertension; J44.9 Chronic obstructive pulmonary disease, unspecified; R31.0 Gross hematuria; N23 Unspecified renal colic; K59.00 Constipation, unspecified; E78.5 Hyperlipidemia, unspecified; R79.89 Other specified abnormal findings of blood chemistry; E86.0 Dehydration; B96.20 Unspecified Escherichia coli [E. coli] as the cause of diseases classified elsewhere; Z79.52 Long term (current) use of systemic steroids; Z95.5 Presence of coronary angioplasty implant and graft
CPT/HCPCS: 36415; 50432; 50590; 50695; 74018; 74176; 74470; 76942; 80048; 80053; 81001; 83690; 83970; 84484; 84550; 85025; 85610; 85730; 87071; 87075; 87086; 87186; 87205; 93005; 93306; 94799; 99152; 99153; 99252; 99284; C1729; C1758; C1769; C2617; J0690; J0692; J0696; J2003; J2250; J2270; J2405; J7030; J7050; Q9967

== ENCOUNTER → 2024-08-16 | Outpatient (REF) | payer MEDICARE ==
[~2024-08-16] MED LIST changes: +ABILIFY5 MG PO; +AMLODIPINE BESYL5 MG PO; +CREON DR 12,001 EACH PO; +FENOFIBRIC ACI135 MG; +HYDRALAZINE HCL25 MG PO; +IOPAMIDOL 370 MG/ML 100 ML INFUS..BTL INJ ONE; +METOPROLOL TART25 MG PO; +PLAVIX75 MG PO; +VALSARTAN80 MG PO
== END ==
LOC: DX 11:03
PROVIDERS: ATTEND Urology
DX: N13.30 Unspecified hydronephrosis (principal)
CPT/HCPCS: 50389; 74425; Q9967

== ENCOUNTER 2024-08-17 12:26 | Inpatient (IN) | payer MEDICARE ==
[~2024-08-17] VITALS: Ht 182.9 cm; Wt 83.9 kg
[~2024-08-17 12:26] MED LIST changes: -IOPAMIDOL 370 MG/ML 100 ML INFUS..BTL INJ ONE; -PLAVIX75 MG PO
[2024-08-17 12:50] VITALS: RESP 18; TEMP 98.7
[2024-08-17] MEDS: KETOROLAC TROMETHAMINE 30 MG/ML VIAL IV STA (14:17)
[2024-08-17] MEDS: SODIUM CHLORIDE 0.9% 1000ML 1,000 ML IV ONE ×2 (14:17→15:02)
[2024-08-17 14:25] LABS: HEMATOCRIT 31.1 % (38.2-49.6); HEMOGLOBIN 10.2 g/dL (14.0-18.0); MEAN CORPUSCULAR VOLUME 89.9 fL (81-99); RED BLOOD COUNT 3.46 x10e6/uL (4.3-5.7); WHITE BLOOD COUNT 6.18 x10e3/uL (4.8-10.8)
[2024-08-17 14:26] LABS: BASOPHILS % 0.5 % (0.0-1.0); EOSINOPHILS # (AUTO) 0.1 (0.0-0.4); EOSINOPHILS % 1.3 % (0.0-6.0); LYMPHOCYTES # (AUTO) 0.5 (1.0-3.2); LYMPHOCYTES % 8.4 % (18.0-39.1); MEAN CORPUSCULAR HEMOGLOBIN 29.5 pg (28-32); MEAN CORPUSCULAR HGB CONC 32.8 g/dL (31-35); MONOCYTES # (AUTO) 0.4 (0.2-0.8); NEUTROPHILS # (AUTO) 5.2 (2.1-6.9); NEUTROPHILS % 83.3 % (38.7-80.0); PLATELET COUNT 178 x10e3/uL (140-360); RED CELL DISTRIBUTION WIDTH 15.8 % (11.7-14.4)
[2024-08-17 14:59] LABS: BILIRUBIN,URINE NEGATIVE (NEGATIVE); CLARITY,URINE CLOUDY (CLEAR); COLOR,URINE YELLOW (YELLOW); GLUCOSE, URINE NEGATIVE (NEGATIVE); KETONES,URINE NEGATIVE (NEGATIVE); LEUKOCYTE ESTERASE ,URINE 2+ (NEGATIVE); NITRITE,URINE NEGATIVE (NEGATIVE); PH,URINE 7 (5 - 7); PROTEIN,URINE DIPSTICK 2+ (NEGATIVE); URINE UROBILINOGEN 0.2 mg/dL (0.2 - 1)
[2024-08-17 15:22] LABS: BACTERIA,URINE MODERATE /HPF; EPITHELIAL CELLS,URINE RARE /LPF; RBC,URINE >50 /HPF (0-5); WBC,URINE (MAN) >50 /HPF (0-5)
[2024-08-17 16:07] LABS: ANION GAP 16.8 mmol/L (8-16); POTASSIUM 3.8 mmol/L (3.5-5.1)
[2024-08-17 16:08] LABS: ALBUMIN 3.7 g/dL (3.5-5.0); ALBUMIN/GLOBULIN RATIO 1.3 (0.8-2.0); BILIRUBIN,TOTAL 0.7 mg/dL (0.2-1.2); CALCIUM 9.3 mg/dL (8.4-10.2); CREATININE, SERUM 1.27 mg/dL (0.72-1.25); TOTAL PROTEIN 6.5 g/dL (6.5-8.1)
[2024-08-17] MEDS ORDERED: Morphine 2mg Syringe 2 MG/ML SYR IV PRN (16:30)
[2024-08-17] MEDS ORDERED: ONDANSETRON HCL INJ 2MG/ML 2ML 2 MG/ML VIAL IV PRN (16:30)
[2024-08-17 18:45] VITALS: PULSE 79
[2024-08-17 20:20] VITALS: BP 139/58; PULSE 73; RESP 18; TEMP 98.2; O2SAT 99
[2024-08-17] MEDS: SODIUM CHLORIDE 0.9% 1000ML 1,000 ML IV SCH (21:03)
[2024-08-17] MEDS ORDERED: PLAVIX75 MG PO (21:16)
[2024-08-18] VITALS (7 sets, daily range): BP systolic 108–143; BP diastolic 46–63; PULSE 56–82; RESP 18–22; TEMP 97.7–99.6; O2SAT 96–100
[2024-08-18 06:48] LABS: HEMATOCRIT 25.8 % (38.2-49.6); HEMOGLOBIN 8.6 g/dL (14.0-18.0); MEAN CORPUSCULAR HEMOGLOBIN 29.7 pg (28-32); MEAN CORPUSCULAR HGB CONC 33.3 g/dL (31-35); RED BLOOD COUNT 2.9 x10e6/uL (4.3-5.7); WHITE BLOOD COUNT 8.06 x10e3/uL (4.8-10.8)
[2024-08-18 06:49] LABS: BASOPHILS % 0.1 % (0.0-1.0); LYMPHOCYTES # (AUTO) 0.5 (1.0-3.2); LYMPHOCYTES % 5.7 % (18.0-39.1); MONOCYTES # (AUTO) 0.5 (0.2-0.8); MONOCYTES % 5.6 % (4.4-11.3); NEUTROPHILS # (AUTO) 7.1 (2.1-6.9); NEUTROPHILS % 87.9 % (38.7-80.0); PLATELET COUNT 123 x10e3/uL (140-360); RED CELL DISTRIBUTION WIDTH 16.1 % (11.7-14.4)
[2024-08-18 07:40] LABS: ALBUMIN 2.6 g/dL (3.5-5.0); ALBUMIN/GLOBULIN RATIO 1.1 (0.8-2.0); BILIRUBIN,TOTAL 0.5 mg/dL (0.2-1.2); CALCIUM 8.2 mg/dL (8.4-10.2); CREATININE, SERUM 1.32 mg/dL (0.72-1.25)
[2024-08-18] MEDS ORDERED: HYDRALAZINE HCL 20 MG/ML VIAL IV PRN (08:30)
[2024-08-18] MEDS ORDERED: ACETAMINOPHEN 325 MG TAB PO PRN (08:30)
[2024-08-18] MEDS ORDERED: TAMSULOSIN HCL 0.4 MG CAP PO SCH (09:00)
[2024-08-18] MEDS: TAMSULOSIN HCL 0.4 MG CAP PO SCH (10:37)
[2024-08-18] MEDS: AMLODIPINE BESYLATE 5 MG TAB PO SCH (10:37)
[2024-08-18] MEDS: METOPROLOL TARTRATE 25 MG TAB PO SCH ×2 (10:37→21:00)
[2024-08-18] MEDS: HYDRALAZINE HCL 25 MG TAB PO SCH ×2 (10:38→21:00)
[2024-08-18] MEDS: AMYLAS/CELLU/LIPAS/PROTEA/BILE 12,000 UNIT CAP PO SCH (11:56)
[2024-08-18] MEDS ORDERED: AMYLAS/CELLU/LIPAS/PROTEA/BILE 12,000 UNIT CAP PO SCH (12:00)
[2024-08-18 13:01] LABS: BAND NEUTROPHILS % (MANUAL) 15 %; LYMPHOCYTES % (MANUAL) 4 % (19-48); METAMYELOCYTES % (MANUAL) 1 % (0-0); MONOCYTES % (MANUAL) 1 % (3.4-9.0); NEUTROPHILS % (MANUAL) 78 % (40-74); PLATELET ESTIMATE ADEQUATE; PLATELET MORPHOLOGY COMMENT NORMAL; RBC MORPHOLOGY COMMENT NORMAL; REACTIVE LYMPHOCYTES 1
[2024-08-18] MEDS: ATORVASTATIN 40 MG TAB PO SCH (21:15)
[2024-08-19 02:00] VITALS: BP 136/53; PULSE 82; RESP 20; TEMP 99.6; O2SAT 96
[2024-08-19 08:40] VITALS: BP 137/62; PULSE 66; RESP 20; TEMP 98; O2SAT 98
[2024-08-19 11:29] VITALS: BP 137/62; PULSE 66; RESP 20; TEMP 98; O2SAT 98
[2024-08-19 12:00] VITALS: BP 118/55; PULSE 60; RESP 18; TEMP 97.9; O2SAT 99
[2024-08-19 17:17] VITALS: BP 126/54; PULSE 65; RESP 18; TEMP 98; O2SAT 98
[2024-08-19 20:00] VITALS: BP 138/68; PULSE 68; RESP 20; TEMP 98.3; O2SAT 98
[2024-08-20] VITALS (7 sets, daily range): BP systolic 128–144; BP diastolic 58–69; PULSE 58–74; RESP 17–18; TEMP 97.5–99; O2SAT 99–100
[2024-08-20 07:22] LABS: ANION GAP 10.2 mmol/L (8-16); CALCIUM 8.4 mg/dL (8.4-10.2); CREATININE, SERUM 1.03 mg/dL (0.72-1.25)
[2024-08-20 07:26] LABS: POTASSIUM 3.2 mmol/L (3.5-5.1)
[2024-08-20 07:28] LABS: BASOPHILS % 0.5 % (0.0-1.0); EOSINOPHILS % 0.5 % (0.0-6.0); HEMATOCRIT 24.8 % (38.2-49.6); LYMPHOCYTES # (AUTO) 0.6 (1.0-3.2); LYMPHOCYTES % 14.5 % (18.0-39.1); MEAN CORPUSCULAR HEMOGLOBIN 29.3 pg (28-32); MEAN CORPUSCULAR HGB CONC 32.3 g/dL (31-35); MEAN CORPUSCULAR VOLUME 90.8 fL (81-99); MONOCYTES # (AUTO) 0.3 (0.2-0.8); MONOCYTES % 7.4 % (4.4-11.3); NEUTROPHILS # (AUTO) 2.9 (2.1-6.9); NEUTROPHILS % 76.8 % (38.7-80.0); PLATELET COUNT 119 x10e3/uL (140-360); RED BLOOD COUNT 2.73 x10e6/uL (4.3-5.7); WHITE BLOOD COUNT 3.79 x10e3/uL (4.8-10.8)
[2024-08-21] VITALS: BP 136/69; PULSE 62; RESP 18; TEMP 98; O2SAT 97
[2024-08-21 04:00] VITALS: BP 132/74; PULSE 62; RESP 18; TEMP 98.6; O2SAT 99
[2024-08-21 08:22] VITALS: BP 143/57; PULSE 60; RESP 18; TEMP 98; O2SAT 97
[2024-08-21 12:16] VITALS: BP 155/61; PULSE 54; RESP 18; TEMP 98; O2SAT 100
[2024-08-21] MEDS ORDERED: ACETAMINOPHEN 1000 MG/100 ML 0 ML IV ONE (14:42)
[2024-08-21] MEDS ORDERED: ROCURONIUM BROMIDE 0 ML IV ONE (14:42)
[2024-08-21] MEDS ORDERED: PROPOFOL IV EMULSION 10 MG/ML 20 ML VIAL ONE (14:42)
[2024-08-21] MEDS ORDERED: SUCCINYLCHOLINE CHLORIDE 20 MG/ML 10ML VIAL ONE (14:42)
[2024-08-21] MEDS ORDERED: FENTANYL CITRATE/PF 100MCG/2 ML INJ ONE ×2 (14:42→15:41)
[2024-08-21] MEDS ORDERED: SEVOFLURANE INHAL SOLN 250 ML PEN BTL ONE (14:42)
[2024-08-21] MEDS ORDERED: ONDANSETRON HCL INJ 2MG/ML 2ML 2 MG/ML VIAL ONE (15:25)
[2024-08-21] MEDS ORDERED: DEXAMETHASONE SOD PHOS INJ 4 MG/ML SDV ONE (15:26)
[2024-08-21] MEDS ORDERED: CEFTRIAXONE 1 GM VIAL ONE (15:30)
[2024-08-21] MEDS ORDERED: EPHEDRINE SULFATE INJ 50 MG/ML VIAL ONE (15:30)
[2024-08-21 17:40] VITALS: BP 140/73; PULSE 68; RESP 18; TEMP 97.2; O2SAT 99
[2024-08-21] MEDS: PHENAZOPYRIDINE HCL 100 MG TAB PO PRN (17:44)
[2024-08-21 20:00] VITALS: BP 166/76; PULSE 80; RESP 18; TEMP 97.5; O2SAT 99
[2024-08-22] VITALS: BP 149/67; PULSE 54; RESP 16; TEMP 97.7; O2SAT 100
[2024-08-22 04:00] VITALS: BP 166/68; PULSE 50; RESP 20; TEMP 97.6; O2SAT 99
[2024-08-22 07:13] LABS: HEMATOCRIT 27.5 % (38.2-49.6); HEMOGLOBIN 8.8 g/dL (14.0-18.0); LYMPHOCYTES # (AUTO) 0.5 (1.0-3.2); LYMPHOCYTES % 13.2 % (18.0-39.1); MEAN CORPUSCULAR VOLUME 90.8 fL (81-99); MONOCYTES # (AUTO) 0.3 (0.2-0.8); MONOCYTES % 6.2 % (4.4-11.3); NEUTROPHILS # (AUTO) 3.2 (2.1-6.9); NEUTROPHILS % 80.1 % (38.7-80.0); PLATELET COUNT 158 x10e3/uL (140-360); RED BLOOD COUNT 3.03 x10e6/uL (4.3-5.7); RED CELL DISTRIBUTION WIDTH 15.9 % (11.7-14.4); WHITE BLOOD COUNT 4.03 x10e3/uL (4.8-10.8)
[2024-08-22 07:47] LABS: ANION GAP 13.8 mmol/L (8-16); CALCIUM 8.4 mg/dL (8.4-10.2); CREATININE, SERUM 0.97 mg/dL (0.72-1.25); POTASSIUM 3.8 mmol/L (3.5-5.1); URIC ACID 4.5 mg/dL (4.8-8.0)
[2024-08-22 09:00] VITALS: BP 157/76; PULSE 59; RESP 18; TEMP 97.4; O2SAT 100
[2024-08-22 10:01] VITALS: BP 157/76; PULSE 59; RESP 18; TEMP 97.4; O2SAT 100
[2024-08-22 17:37] VITALS: BP 131/65; PULSE 75; RESP 18; TEMP 97.7; O2SAT 100
[2024-08-23 04:09] LABS: CALCIUM 8.6 mg/dL (8.6-10.2)
[2024-09-11] MEDS ORDERED: FENOFIBRATE134 MG PO (11:53)
[2024-09-11] MEDS ORDERED: FLOMAX0.4 MG PO (11:53)
[2024-09-28] MEDS ORDERED: TOPROL XL50 MG PO (14:00)
[2024-09-28] MEDS ORDERED: PANTOPRAZOLE SO40 MG PO (14:00)
== END 2024-08-22 19:20 | disposition home or self-care (01) | DRG 699 ==
LOC: ER 12:30 → ERHOLD 16:18 → MED/SURG3 19:59 → OBSVTOIN 08-18 08:26
PROVIDERS: ADMIT Internal Medicine; ATTEND Internal Medicine
PROC: 0TP98DZ Removal of Intraluminal Device from Ureter, Via Natural or Artificial Opening Endoscopic (ICD-10-PCS; 2024-08-21)
PROC: 0TF68ZZ Fragmentation in Right Ureter, Via Natural or Artificial Opening Endoscopic (ICD-10-PCS; 2024-08-21)
PROC: 0TF78ZZ Fragmentation in Left Ureter, Via Natural or Artificial Opening Endoscopic (ICD-10-PCS; 2024-08-21)
PROC: 0T9B70Z Drainage of Bladder with Drainage Device, Via Natural or Artificial Opening (ICD-10-PCS; 2024-08-21)
PROC: BT141ZZ Fluoroscopy of Kidneys, Ureters and Bladder using Low Osmolar Contrast (ICD-10-PCS; 2024-08-21)
PROC: 0TP98DZ Removal of Intraluminal Device from Ureter, Via Natural or Artificial Opening Endoscopic (ICD-10-PCS; principal; 2024-08-21 15:03)
DX: T83.593A Infection and inflammatory reaction due to other urinary stents, initial encounter (principal); N13.6 Pyonephrosis; N17.9 Acute kidney failure, unspecified; N13.8 Other obstructive and reflux uropathy; N40.1 Benign prostatic hyperplasia with lower urinary tract symptoms; R33.8 Other retention of urine; B96.20 Unspecified Escherichia coli [E. coli] as the cause of diseases classified elsewhere; R31.0 Gross hematuria; I10 Essential (primary) hypertension; J44.9 Chronic obstructive pulmonary disease, unspecified; I25.10 Atherosclerotic heart disease of native coronary artery without angina pectoris; M19.90 Unspecified osteoarthritis, unspecified site; Z79.02 Long term (current) use of antithrombotics/antiplatelets; Y83.1 Surgical operation with implant of artificial internal device as the cause of abnormal reaction of the patient, or of later complication, without mention of misadventure at the time of the procedure; Z95.5 Presence of coronary angioplasty implant and graft; Z96.0 Presence of urogenital implants; Z87.440 Personal history of urinary (tract) infections; Z86.718 Personal history of other venous thrombosis and embolism
CPT/HCPCS: 36415; 51700; 74176; 74420; 80048; 80053; 81001; 83690; 83970; 84550; 85025; 87086; 87186; 99284; C2617; G0378; J0330; J0690; J0696; J1100; J1885; J2405; J2543; J7030

== ENCOUNTER → 2024-09-13 | Day surgery (SDC) | payer MEDICARE ==
[2024-09-11 12:09] LABS: BASOPHILS # (AUTO) 0.1 (0.0-0.1); BASOPHILS % 0.9 % (0.0-1.0); EOSINOPHILS # (AUTO) 0.1 (0.0-0.4); EOSINOPHILS % 2.4 % (0.0-6.0); HEMATOCRIT 26.7 % (38.2-49.6); HEMOGLOBIN 8.7 g/dL (14.0-18.0); LYMPHOCYTES # (AUTO) 1.3 (1.0-3.2); LYMPHOCYTES % 24.6 % (18.0-39.1); MEAN CORPUSCULAR HEMOGLOBIN 29.8 pg (28-32); MEAN CORPUSCULAR HGB CONC 32.6 g/dL (31-35); MEAN CORPUSCULAR VOLUME 91.4 fL (81-99); MONOCYTES # (AUTO) 0.4 (0.2-0.8); MONOCYTES % 7.5 % (4.4-11.3); NEUTROPHILS # (AUTO) 3.5 (2.1-6.9); NEUTROPHILS % 64.4 % (38.7-80.0); PLATELET COUNT 168 x10e3/uL (140-360); RED BLOOD COUNT 2.92 x10e6/uL (4.3-5.7); RED CELL DISTRIBUTION WIDTH 16.3 % (11.7-14.4); WHITE BLOOD COUNT 5.36 x10e3/uL (4.8-10.8)
[2024-09-11 12:33] LABS: ANION GAP 14.2 mmol/L (8-16); CALCIUM 9.6 mg/dL (8.4-10.2); CREATININE, SERUM 1.41 mg/dL (0.72-1.25); POTASSIUM 4.2 mmol/L (3.5-5.1); URIC ACID 6.8 mg/dL (4.8-8.0)
[~2024-09-13] MED LIST changes: +ACETAMINOPHEN 1000 MG/100 ML 100 ML IV ONE; +DEXAMETHASONE SOD PHOS INJ 4 MG/ML SDV ONE; +EPHEDRINE SULFATE INJ 50 MG/ML VIAL ONE; +FENOFIBRATE134 MG PO; +FLOMAX0.4 MG PO; +LIDOCAINE HCL 2% LOCAL INJ 5 ML SDV VIAL INJ ONE; +ONDANSETRON HCL INJ 2MG/ML 2ML 2 MG/ML VIAL ONE; +PANTOPRAZOLE SO40 MG PO; +PLAVIX75 MG PO; +PROPOFOL IV EMULSION 10 MG/ML 20 ML VIAL ONE; +TOPROL XL50 MG PO
[2024-09-13] MEDS: SODIUM CHLORIDE 0.9% 1000ML 1,000 ML ONE (09:15)
[2024-09-13] MEDS: MEROPENEM 1 GM VIAL ONE (09:16)
[2024-09-13] MEDS: GENTAMICIN 80MG/NS 100 ML 100 ML IV ONE (09:17)
[2024-09-13] MEDS: PHENAZOPYRIDINE HCL 100 MG TAB ONE (12:35)
[2024-09-13 13:07] VITALS: BP 156/78; PULSE 71; RESP 18; O2SAT 98
[2024-09-13] MEDS: ACETAMINOPHEN/CODEINE 300MG - 30MG TAB ONE (13:13)
== END | disposition home or self-care (01) ==
LOC: OR 08:00
PROVIDERS: ATTEND Urology
DX: N20.0 Calculus of kidney (principal); N21.0 Calculus in bladder; Z46.6 Encounter for fitting and adjustment of urinary device; N40.0 Benign prostatic hyperplasia without lower urinary tract symptoms; N42.0 Calculus of prostate; D64.9 Anemia, unspecified; I10 Essential (primary) hypertension; E78.5 Hyperlipidemia, unspecified; R06.02 Shortness of breath; M54.9 Dorsalgia, unspecified; M54.2 Cervicalgia; Z01.810 Encounter for preprocedural cardiovascular examination; Z01.812 Encounter for preprocedural laboratory examination; Z01.818 Encounter for other preprocedural examination; Z79.02 Long term (current) use of antithrombotics/antiplatelets; Z79.899 Other long term (current) drug therapy
CPT/HCPCS: 36415; 52317; 71046; 74018; 74420; 80048; 84550; 85025; 88300; 93005; C1766; C1769; J0131; J1100; J1580; J2003; J2185; J2405; J2704; J7030

== ENCOUNTER 2024-09-24 18:46 | Inpatient (IN) | payer MEDICARE ==
[~2024-09-24] VITALS: Ht 182.9 cm; Wt 83.0 kg
[~2024-09-24 18:46] MED LIST changes: -ACETAMINOPHEN 1000 MG/100 ML 100 ML IV ONE; -DEXAMETHASONE SOD PHOS INJ 4 MG/ML SDV ONE; -EPHEDRINE SULFATE INJ 50 MG/ML VIAL ONE; -LIDOCAINE HCL 2% LOCAL INJ 5 ML SDV VIAL INJ ONE; -ONDANSETRON HCL INJ 2MG/ML 2ML 2 MG/ML VIAL ONE; -PANTOPRAZOLE SO40 MG PO; -PROPOFOL IV EMULSION 10 MG/ML 20 ML VIAL ONE; -TOPROL XL50 MG PO
[2024-09-24 19:32] LABS: BASOPHILS % 0.6 % (0.0-1.0); EOSINOPHILS # (AUTO) 0.1 (0.0-0.4); EOSINOPHILS % 1.9 % (0.0-6.0); LYMPHOCYTES # (AUTO) 0.8 (1.0-3.2); LYMPHOCYTES % 22.3 % (18.0-39.1); MEAN CORPUSCULAR HEMOGLOBIN 29.3 pg (28-32); MEAN CORPUSCULAR HGB CONC 31.4 g/dL (31-35); MEAN CORPUSCULAR VOLUME 93.5 fL (81-99); MONOCYTES # (AUTO) 0.2 (0.2-0.8); MONOCYTES % 6.6 % (4.4-11.3); NEUTROPHILS # (AUTO) 2.5 (2.1-6.9); NEUTROPHILS % 68.3 % (38.7-80.0); PLATELET COUNT 179 x10e3/uL (140-360); RED BLOOD COUNT 1.84 x10e6/uL (4.3-5.7); RED CELL DISTRIBUTION WIDTH 16.3 % (11.7-14.4); WHITE BLOOD COUNT 3.63 x10e3/uL (4.8-10.8)
[2024-09-24 19:33] LABS: HEMATOCRIT 17.2 % (38.2-49.6); HEMOGLOBIN 5.4 g/dL (14.0-18.0)
[2024-09-24 19:52] LABS: ALBUMIN 3.1 g/dL (3.5-5.0); ALBUMIN/GLOBULIN RATIO 1.6 (0.8-2.0); ANION GAP 12.7 mmol/L (8-16); BILIRUBIN,TOTAL 0.3 mg/dL (0.2-1.2); CALCIUM 8.6 mg/dL (8.4-10.2); CREATININE, SERUM 1.39 mg/dL (0.72-1.25); POTASSIUM 3.7 mmol/L (3.5-5.1); TOTAL PROTEIN 5.1 g/dL (6.5-8.1)
[2024-09-24 20:30] VITALS: RESP 20
[2024-09-24] MEDS ORDERED: ONDANSETRON HCL INJ 2MG/ML 2ML 2 MG/ML VIAL IV PRN (20:30)
[2024-09-24] MEDS ORDERED: SODIUM CHLORIDE FLUSH 10 ML SYR INJ PRN (20:30)
[2024-09-24 21:37] VITALS: PULSE 58; TEMP 97.8
[2024-09-24 22:52] VITALS: PULSE 70; RESP 18; O2SAT 97
[2024-09-24 23:10] VITALS: BP 146/63; PULSE 71; RESP 18; TEMP 97.8; O2SAT 98
[2024-09-24 23:12] VITALS: BP 146/63; PULSE 71; RESP 18; TEMP 97.8; O2SAT 98
[2024-09-24 23:25] VITALS: BP 146/63; PULSE 71; RESP 18; TEMP 97.8; O2SAT 98
[2024-09-25] VITALS (8 sets, daily range): BP systolic 109–153; BP diastolic 47–65; PULSE 57–76; RESP 16–18; TEMP 97.3–97.9; O2SAT 98–100
[2024-09-25 09:51] LABS: EOSINOPHILS # (AUTO) 0.1 (0.0-0.4); LYMPHOCYTES # (AUTO) 0.7 (1.0-3.2); MEAN CORPUSCULAR HEMOGLOBIN 29.4 pg (28-32); MEAN CORPUSCULAR HGB CONC 32.9 g/dL (31-35); MONOCYTES # (AUTO) 0.2 (0.2-0.8); MONOCYTES % 7.2 % (4.4-11.3); NEUTROPHILS % 66.8 % (38.7-80.0); PLATELET COUNT 145 x10e3/uL (140-360); RED BLOOD COUNT 2.31 x10e6/uL (4.3-5.7); RED CELL DISTRIBUTION WIDTH 16.3 % (11.7-14.4); WHITE BLOOD COUNT 3.05 x10e3/uL (4.8-10.8)
[2024-09-25 10:04] LABS: HEMATOCRIT 20.7 % (38.2-49.6); HEMOGLOBIN 6.8 g/dL (14.0-18.0); MEAN CORPUSCULAR VOLUME 89.6 fL (81-99)
[2024-09-25 10:14] LABS: ANION GAP 11.5 mmol/L (8-16); CALCIUM 8.4 mg/dL (8.4-10.2); CREATININE, SERUM 1.08 mg/dL (0.72-1.25); POTASSIUM 3.5 mmol/L (3.5-5.1)
[2024-09-25] MEDS: SODIUM CHLORIDE 0.9% 250ML 250 ML IV ONE (12:09)
[2024-09-25] MEDS ORDERED: DEXTROSE 50% SYRINGE 50 ML IV PRN (12:30)
[2024-09-25] MEDS ORDERED: DIPHENHYDRAMINE HCL 25 MG CAP PO PRN (12:30)
[2024-09-25] MEDS ORDERED: ACETAMINOPHEN 325 MG TAB PO PRN (12:30)
[2024-09-25] MEDS ORDERED: LIDOCAINE 4% PATCH TP PRN (12:30)
[2024-09-25] MEDS ORDERED: SIMETHICONE 80 MG CHEW PO PRN (12:30)
[2024-09-25] MEDS ORDERED: ALBUTEROL/IPRATROPIUM 3 ML NEB NEB PRN (12:30)
[2024-09-25] MEDS ORDERED: DOCUSATE SODIUM 100 MG CAP PO PRN (12:30)
[2024-09-25] MEDS ORDERED: BENZONATATE 100 MG CAP PO PRN (12:30)
[2024-09-25] MEDS ORDERED: POTASSIUM CHLORIDE 20 MEQ TAB CR PO PRN (12:30)
[2024-09-25] MEDS: AMYLAS/CELLU/LIPAS/PROTEA/BILE 12,000 UNIT CAP PO SCH (16:59)
[2024-09-25] MEDS ORDERED: SODIUM CHLORIDE 0.9% 100 ML ONE (18:04)
[2024-09-25] MEDS ORDERED: IOPAMIDOL 370 MG/ML 100 ML INFUS..BTL INJ ONE (18:04)
[2024-09-25 22:33] LABS: FERRITIN 34.06 ng/mL (21.81-274.66)
[2024-09-26] VITALS (9 sets, daily range): BP systolic 127–152; BP diastolic 61–87; PULSE 62–72; RESP 16–19; TEMP 97.3–98.8; O2SAT 98–100
[2024-09-26 00:36] LABS: HEMATOCRIT 25.2 % (38.2-49.6); HEMOGLOBIN 8.4 g/dL (14.0-18.0)
[2024-09-26 05:21] LABS: BASOPHILS % 0.7 % (0.0-1.0); EOSINOPHILS # (AUTO) 0.1 (0.0-0.4); EOSINOPHILS % 2.2 % (0.0-6.0); HEMATOCRIT 26.3 % (38.2-49.6); HEMOGLOBIN 8.7 g/dL (14.0-18.0); LYMPHOCYTES # (AUTO) 0.8 (1.0-3.2); LYMPHOCYTES % 17.2 % (18.0-39.1); MEAN CORPUSCULAR HEMOGLOBIN 29.2 pg (28-32); MEAN CORPUSCULAR HGB CONC 33.1 g/dL (31-35); MEAN CORPUSCULAR VOLUME 88.3 fL (81-99); MONOCYTES # (AUTO) 0.3 (0.2-0.8); MONOCYTES % 6.3 % (4.4-11.3); NEUTROPHILS # (AUTO) 3.3 (2.1-6.9); NEUTROPHILS % 73.4 % (38.7-80.0); PLATELET COUNT 157 x10e3/uL (140-360); RED BLOOD COUNT 2.98 x10e6/uL (4.3-5.7); RED CELL DISTRIBUTION WIDTH 16.3 % (11.7-14.4); WHITE BLOOD COUNT 4.47 x10e3/uL (4.8-10.8)
[2024-09-26 05:49] LABS: ANION GAP 9.5 mmol/L (8-16); CALCIUM 8.4 mg/dL (8.4-10.2); CREATININE, SERUM 0.91 mg/dL (0.72-1.25); MAGNESIUM 1.7 MG/DL (1.3-2.1); PHOSPHORUS 2.5 MG/DL (2.3-4.7); POTASSIUM 3.5 mmol/L (3.5-5.1)
[2024-09-26] MEDS ORDERED: PANTOPRAZOLE SOD 40 MG TABEC PO SCH (07:30)
[2024-09-26] MEDS: ATORVASTATIN 40 MG TAB PO SCH (07:58)
[2024-09-26] MEDS: TAMSULOSIN HCL 0.4 MG CAP PO SCH (07:59)
[2024-09-26] MEDS: FENOFIBRATE 134 MG PO SCH (07:59)
[2024-09-26] MEDS: SODIUM CHLORIDE 0.9% 250ML 250 ML ONE (13:53)
[2024-09-26] MEDS: POTASSIUM CHLORIDE 10MEQ EA PO ONE (13:54)
[2024-09-26] MEDS: MAGNESIUM SULFATE 2GM/50ML 50 ML IV ONE (13:54)
[2024-09-26] MEDS: SODIUM CHLORIDE 0.9% 250ML 250 ML IV ONE (14:01)
[2024-09-27] VITALS (11 sets, daily range): BP systolic 138–181; BP diastolic 48–80; PULSE 58–73; RESP 18; TEMP 97.7–98.1; O2SAT 96–100
[2024-09-27 05:13] LABS: BASOPHILS % 0.8 % (0.0-1.0); EOSINOPHILS # (AUTO) 0.1 (0.0-0.4); EOSINOPHILS % 3.4 % (0.0-6.0); HEMATOCRIT 25.8 % (38.2-49.6); HEMOGLOBIN 8.5 g/dL (14.0-18.0); LYMPHOCYTES # (AUTO) 0.8 (1.0-3.2); LYMPHOCYTES % 21.4 % (18.0-39.1); MEAN CORPUSCULAR HEMOGLOBIN 29.2 pg (28-32); MEAN CORPUSCULAR HGB CONC 32.9 g/dL (31-35); MEAN CORPUSCULAR VOLUME 88.7 fL (81-99); MONOCYTES # (AUTO) 0.3 (0.2-0.8); MONOCYTES % 7.5 % (4.4-11.3); NEUTROPHILS # (AUTO) 2.6 (2.1-6.9); NEUTROPHILS % 66.6 % (38.7-80.0); PLATELET COUNT 146 x10e3/uL (140-360); RED BLOOD COUNT 2.91 x10e6/uL (4.3-5.7); RED CELL DISTRIBUTION WIDTH 15.7 % (11.7-14.4); WHITE BLOOD COUNT 3.87 x10e3/uL (4.8-10.8)
[2024-09-27 05:56] LABS: ANION GAP 8.8 mmol/L (8-16); BLOOD UREA NITROGEN < 5 mg/dL (7-26); BUN/CREATININE RATIO 5 (6-25); CALCIUM 8.3 mg/dL (8.4-10.2); CARBON DIOXIDE 22 mmol/L (22-29); CHLORIDE 111 mmol/L (98-107); CREATININE, SERUM 0.92 mg/dL (0.72-1.25); EST GLOMERULAR FILTRATION RATE 80 ML/MIN (>=60); GLUCOSE 92 mg/dL (74-118); POTASSIUM 3.8 mmol/L (3.5-5.1); SODIUM 138 mmol/L (136-145)
[2024-09-27] MEDS: IRON SUCROSE 100 MG in SODIUM CHLORIDE 0.9% 100 ML IV SCH (08:55)
[2024-09-27] MEDS: METOPROLOL SUCCINATE 25 MG TAB XL PO SCH (09:10)
[2024-09-27] MEDS: HYDRALAZINE HCL 20 MG/ML VIAL IV PRN (17:42)
[2024-09-28] VITALS (9 sets, daily range): BP systolic 148–164; BP diastolic 69–79; PULSE 60–73; RESP 18; TEMP 96.9–97.8; O2SAT 99–100
[2024-09-28] MEDS: POTASSIUM CHLORIDE 20MEQ/100ML 100 ML IV ONE (00:22)
[2024-09-28 06:33] LABS: HEMATOCRIT 30.7 % (38.2-49.6); HEMOGLOBIN 9.9 g/dL (14.0-18.0)
[2024-09-28] MEDS: METOPROLOL SUCCINATE 50 MG TAB XL PO SCH (09:00)
[2024-09-28] MEDS ORDERED: TOPROL XL50 MG PO (14:00)
[2024-09-28] MEDS ORDERED: PANTOPRAZOLE SO40 MG PO (14:00)
[2024-09-28] MEDS ORDERED: FENTANYL CITRATE/PF 100MCG/2 ML INJ ONE (15:37)
[2024-09-28] MEDS ORDERED: PROPOFOL IV EMULSION 10 MG/ML 20 ML VIAL ONE (15:39)
== END 2024-09-28 19:00 | disposition home or self-care (01) | DRG 812 ==
LOC: ER 20:01 → ERHOLD 20:19 → MED/SURG 22:00 → OBSVTOIN 09-26 12:00
PROVIDERS: ADMIT Internal Medicine; ATTEND Internal Medicine
PROC: 30233N1 Transfusion of Nonautologous Red Blood Cells into Peripheral Vein, Percutaneous Approach (ICD-10-PCS; 2024-09-24)
PROC: 0DB78ZX Excision of Stomach, Pylorus, Via Natural or Artificial Opening Endoscopic, Diagnostic (ICD-10-PCS; 2024-09-28)
PROC: 0W3P8ZZ Control Bleeding in Gastrointestinal Tract, Via Natural or Artificial Opening Endoscopic (ICD-10-PCS; principal; 2024-09-28 16:00)
PROC: 0DB68ZX Excision of Stomach, Via Natural or Artificial Opening Endoscopic, Diagnostic (ICD-10-PCS; 2024-09-28 16:00)
DX: D50.0 Iron deficiency anemia secondary to blood loss (chronic) (principal); K31.819 Angiodysplasia of stomach and duodenum without bleeding; I10 Essential (primary) hypertension; J44.9 Chronic obstructive pulmonary disease, unspecified; I25.10 Atherosclerotic heart disease of native coronary artery without angina pectoris; N40.0 Benign prostatic hyperplasia without lower urinary tract symptoms; Z95.5 Presence of coronary angioplasty implant and graft; Z87.891 Personal history of nicotine dependence; Z86.718 Personal history of other venous thrombosis and embolism; Z79.02 Long term (current) use of antithrombotics/antiplatelets; Z82.49 Family history of ischemic heart disease and other diseases of the circulatory system
CPT/HCPCS: 36415; 43239; 43255; 74174; 80048; 80053; 80061; 82607; 82728; 82746; 83540; 83735; 84100; 84466; 85014; 85018; 85025; 85045; 86850; 86900; 86920; 88305; 88342; 93005; 94799; 99284; G0378; J0360; J1756; J2470; J3475; J3480; J7050; P9016; Q9967

== ENCOUNTER → 2025-02-20 | Outpatient (REF) | payer MEDICARE ==
[~2025-02-20] MED LIST changes: +IOPAMIDOL 370 MG/ML 100 ML INFUS..BTL INJ ONE; +PANTOPRAZOLE SO40 MG PO; +SODIUM CHLORIDE 0.9% 500ML 500 ML ONE; +TOPROL XL50 MG PO
[2025-02-20 15:23] LABS: EST GLOMERULAR FILTRATION RATE 45.0 ML/MIN (>=60)
== END ==
LOC: CT 14:36
PROVIDERS: ATTEND Family Medicine
DX: R10.31 Right lower quadrant pain (principal)
CPT/HCPCS: 36415; 74177; 82565; 84520; 96360; J7040; Q9967